=== PATIENT | male | born 1950 | race Caucasian/White ===

== ENCOUNTER → 2021-01-18 15:05 | Outpatient (CLI) | payer MEDICARE, OTHER, SELFPAY ==
--- NOTE | 2021-01-18 | DI.MRI.S_ITS ---
PROCEDURE: MR HEAD/BRAIN WO/W CON INDICATIONS: Personal history of benign neoplasm of the brain TECHNIQUE: Noncontrast axial T1 spin echo, axial T2 fast spin echo, sagittal and axial FLAIR, coronal T2 fast spin echo, axial gradient echo, axial diffusion and ADC through the brain. After the administration of contrast, axial and coronal T1 spin echo with fat saturation through the brain. COMPARISON: [facility] [place] , MR, ORBITS W&W/O CONTRAST, 09/08/2008, 17:24. FINDINGS: Image quality: There is artifact associated with the metallic hardware. CSF spaces: Basal cisterns are patent. No extra-axial fluid collections. Ventricles are normal in size and shape. Brain: Volume loss and encephalomalacia can be seen involving the anterior frontal lobes. The previously seen apparent inferior frontal meningioma is no longer seen. No masses or abnormal enhancement can be seen to suggest local recurrence. No new masses or abnormal enhancement can be seen elsewhere. No midline shift. There is cerebral volume loss for age. There is periventricular white matter chronic small vessel ischemic change. The brainstem appears normal. Diffusion-weighted images demonstrate no acute ischemic insults. Normal intravascular flow voids are present. Skull and face: Anterior craniotomy changes are seen. Calvarial marrow is normal in signal. Orbits appear normal. In this patient with this given history of right a symptoms, scrutiny is given to the right orbit. The globes demonstrate a normal, symmetric appearance. No masses or abnormal enhancement can be seen within the orbits, to the limits of this standard protocol MRI. No abnormalities of the optic nerves are detected. Sinuses: Sinuses and mastoids appear clear. 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 No recurrent masses are seen. No significant orbital abnormality can be seen. Bilateral frontal lobe volume loss and encephalomalacia can be seen. Craniotomy change can be seen involving the frontal calvarium, with associated susceptibility artifact. Dictated by: Hipolito Brantley M.D. on 01/18/2021 at 16:26 Approved by: Hipolito Brantley M.D. on 01/18/2021 at 16:30
== END ==
PROVIDERS: PCP Family Medicine; Referring Provider Family Medicine; Visit Provider Family Medicine
DX: Z86.011 Personal history of benign neoplasm of the brain (principal); Z08 Encounter for follow-up examination after completed treatment for malignant neoplasm
CPT/HCPCS: 70553